=== PATIENT | male | born 1990 | race African-American/Black ===

== ENCOUNTER 2022-06-02 14:30 | Observation (INO) | payer MEDICARE, MEDICAID, SELFPAY ==
[2022-06-02] VITALS (9 sets, daily range): BP systolic 95–120; BP diastolic 58–80; PULSE 58–92; RESP 11–18; TEMP 36.3–36.9; O2SAT 96–100
--- NOTE | ~2022-06-02 | XR_ITS ---
EXAMINATION: XR chest 1V portable DATE: 06/02/2022 17:46 INDICATION: Transient alteration of awareness TECHNIQUE: frontal view of the chest was obtained. COMPARISON: None FINDINGS: The lungs are clear with no focal airspace opacities, pulmonary edema, pleural effusion or pneumothor ax. The cardiomediastinal silhouette is normal. Visualized bones and soft tissues are unremarkable. IMPRESSION: 1. Normal chest radiograph. Reviewed, dictated and finalized at location A. IMPRESSION: 1. Normal chest radiograph.
--- NOTE | ~2022-06-02 | CT_ITS ---
EXAMINATION: CT brain wo con DATE: 06/02/2022 17:34 INDICATION: Altered mental status TECHNIQUE: Computed tomography (CT) of the head was performed without intravenous contrast. Sagittal and coronal reconstructions were performed. The mA was adjusted according to patient size. Iterative reconstruction technique was employed. The dose-length product was 605.33 mGy-cm. COMPARISON: None FINDINGS: No acute intracranial hemorrhage, acute infarction or abnormal extra axial fluid collection. Ventricl es are normal and symmetric. No mass/mass effect. Partially visualized lobular mucous retention cyst in the right maxillary sinus. The orbits and mastoid air cells are normal. IMPRESSION: 1. Normal brain. Reviewed, dictated and finalized at location A. IMPRESSION: 1. Normal brain.
--- NOTE | 2022-06-02 14:31 | ECG_ITS ---
Measurements Intervals [place] Rate: 84 P: 63 IA: 146 QRS: 35 QRSD: 71 T: 48 QT: 330 QTc: 391 Interpretive Statements SINUS RHYTHM WITH MARKED SINUS ARRHYTHMIA ST ELEVATION IN DIFFUSE LEADS- PROBABLY EARLY REPOLARIZATION BORDERLINE ECG NO PREVIOUS ECG AVAILABLE FOR COMPARISON Electronically Signed On 06-03-2022 7:01:23 CDT by Elliott Bruno D.O.
[2022-06-02 14:42] LABS: Glucose Point of Care 201 mg/dl (65-105)
[2022-06-02 14:56] LABS: Basophils Percent Auto 0.4 % (0.2-1.2); Eosinophils Percent Auto 0.2 % (0-4.4); Hematocrit 36.8 % (42.0-52.0); Hemoglobin 12.3 g/dL (14.0-18.0); Immature Granulocyte Absolute 0.03 K/mm3 (0.00-0.031); Immature Granulocyte Percent A 0.3 % (0-0.5); Lymphocytes Absolute Auto 1.02 K/mm3 (0.9-3.2); Lymphocytes Percent Auto 11.4 % (18.3-44.2); Mean Corpuscular HGB Conc 33.4 g/dl (32-36); Mean Corpuscular Hemoglobin 30.6 pg (26-34); Mean Corpuscular Volume 91.5 fl (80-100); Mean Platelet Volume 9.2 fl (7.4-10.4); Monocytes Absolute Auto 0.3 K/mm3 (0.1-0.6); Neutrophils Absolute Auto 7.5 K/mm3 (1.3-6.7); Neutrophils Percent Auto 84.7 % (45.5-73.1); Platelet Count Result 244 k/mm3 (150-375); Red Blood Count 4.02 M/mm3 (4.6-6.20); White Blood Count 8.9 K/mm3 (4.5-10.0)
[2022-06-02] MEDS: SODIUM CHLORIDE 0.9% IV 1,000 ML 999 ML IV CONT (14:57)
[2022-06-02 15:04] LABS: Base Excess ABG 1.8 mEq/l (+/-2.0); Carboxyhemoglobin 0.3 % THb (0-2.0); Fractional Inspired Oxygen 21 %; HCO3 ABG 23.6 mEq/l (22.0-26.0); Methemoglobin ABG 0.3 %THb (0-1.5); Oxygen Content ABG 18.1 %vol (16.0-22.0); Oxygen Saturation ABG 98.6 % (95.0-100.0); Oxyhemoglobin 97.2 % THb (90.0-100.0); PCO2 ABG 29.2 mmHg (35.0-45.0); PO2 ABG 115.1 mmHg (80.0-100.0); PO2 FiO2 Ratio Arterial Blood 5.48 %; Reduced Hemoglobin 2.2 %THb (0-5.0); Total Hemoglobin 13.1 g/dL (12.0-18.0)
[2022-06-02 15:05] LABS: Device ROOM AIR; Modified Allen's Test Pass; Site Drawn RIGHT RADIAL
[2022-06-02 15:10] LABS: pH ABG 7.526 (7.350-7.450)
[2022-06-02 15:10] LABS: Alanine Aminotransferase 12 U/L (6-50); Albumin Level 4.4 g/dL (3.5-5.1); Alkaline Phosphatase 43 U/L (38-126); Anion Gap 15 mmol/L (8-16); Aspartate Amino Transferase 20 U/L (17-59); Bilirubin,Total 0.9 mg/dL (0.2-1.3); Blood Urea Nitrogen 25 mg/dL (9-20); Calcium 9.2 mg/dL (8.4-10.2); Carbon Dioxide 22 mmol/L (22-30); Chloride 102 mmol/L (98-107); Estimated Glomerular Filt Rate > 60; Glucose 210 mg/dL (65-110); INR 1.1; Potassium 4.1 mmol/L (3.4-5.0); Sodium 139 mmol/L (137-145)
[2022-06-02 15:11] LABS: Partial Thromboplastin Time 28.7 SECONDS (22.3-36.8)
[2022-06-02 15:15] LABS: Ethanol < 10 mg/dL (<10)
[2022-06-02 15:23] LABS: Creatine Kinase 130 U/L (55-170)
[2022-06-02 16:44] LABS: Appearance Urine Clear (Clear); Bilirubin Urine 1+ (Negative); Blood Urine Trace-intact (Negative); Color Urine Yellow (Yellow); Glucose Urine UA Trace mg/dL (Negative); Ketones Urine 4+ mg/dL (Negative); Leukocyte Esterase Ur Negative LEU/UL (Negative); Nitrate Urine Negative (Negative); Protein Urine 1+ mg/dL (Negative)
[2022-06-02 16:49] LABS: Bacteria Urine Trace /hpf; Mucus Urine Few /lpf
[2022-06-02 16:57] LABS: Amphetamine Screen Urine Negative (Negative); Barbiturate Screen Urine Negative (Negative); Benzodiazepines Screen Urine Negative (Negative); Cannabinoid Screen Urine Negative (Negative); Cocaine Screen Urine Negative (Negative); Methadone Screen Urine Negative (Negative); Opiate Screen Urine Negative (Negative); Phencyclidine Screen Urine Negative (Negative)
[2022-06-02 17:05] LABS: Add Urine Microscopic? YES
--- NOTE | 2022-06-02 17:15 | PM.IMHP ---
H&P: HPI History of Present Illness Date/Time: 06/02/22 17:15 Chief Complaint: Altered mental status. Narrative: The patient is an a male of unknown age who presented to the emergency department via EMS for evaluation of altered mental status. He is alert but unable to provide any meaningful history and as such all of the following is obtained via a review of his electronic medical records. According to EMS report, they were dispatched to a local roadway for reports of a disoriented male who was walking in and out of a corn field. His vital signs were stable on their arrival. Glucose was 72 and he was given dextrose. He was also given Narcan without response. On arrival to the emergency department he did provide a date of however it is unclear whether or not this is accurate. He looks thin and a bit dehydrated but otherwise he is nontoxic in appearance. He tells me he cannot remember his name. In fact he says he does not know where he is, who he is, and why he is here. I reminded him that he was found walking around a corn field in [place] and he said he was trying to get back to [place]. He did specifically deny headache, chest pain, and shortness of breath. He indicated that he was hungry and thirsty. He could provide no further information. Review of Systems Review of Systems: Unable to obtain accurately given altered mental status. [facility] Past Medical History Medical History Medical history unknown Surgical History Surgical History Surgical history unknown Family History Family History (Updated 06/02/22 @ 17:40 by Rosi Underwood PA-C) Other Family history unknown Social History Social History (Updated 06/02/22 @ 20:28 by Rosi Underwood PA-C) Social History: Patient unable to provide any history whatsoever. Smoking status: Unknown if ever smoked Alcohol intake: unknown Substance use: unknown Meds Home Medications and Allergies Home Medications Medication Instructions Recorded Confirmed Type No Home Medications 06/02/22 06/02/22 History Vital Signs Vital Signs - 24 hr 06/02/22 14:25 06/02/22 14:41 09/27/22 15:01 Pulse Rate 92 78 Respiratory Rate 16 16 15 Blood Pressure 115/69 95/58 L Pulse Oximetry 96 96 Oxygen Delivery Room Air 06/02/22 15:31 06/02/22 16:01 Pulse Rate 72 65 Respiratory Rate 13 14 Blood Pressure 113/63 109/68 Pulse Oximetry Oxygen Delivery Exam Narrative: General: Thin, nontoxic-appearing male supine in bed. Weight: 63.6 kilograms for HEENT: Normocephalic, atraumatic. PERRL, EOMI. Sclera anicteric. Dry mucous membranes. Oropharynx not visualized. Neck: Supple. No obvious thyromegaly or carotid bruits though exam limited due to patient cooperation. No nuchal rigidity. Respiratory: Respirations are nonlabored. Lung sounds are diminished due to poor effort but are otherwise clear. Cardiovascular: Regular rate and rhythm with S1-S2. No murmur, rub, or gallop. Gastrointestinal: Abdomen is soft, nontender, and nondistended with positive bowel sounds. Skin: Warm and dry. Extremities: No cyanosis, clubbing, or edema. Radial and pedal pulses intact. Neurological: Alert But not oriented. initially he provided a date of though this has yet to be confirmed. He cannot tell me his name, age, current year, place. Cranial nerves 2-12 are grossly intact. Speech is minimal and pressured, at times he stutters huh, huh, I, I, don't know. Psychiatric: Disoriented but cooperative. H&P: Results Labs Labs: Short CBC 06/02/22 Range/Units 14:45 WBC 8.9 (4.5-10.0) K/mm3 Hgb 12.3 L (14.0-18.0) g/dL Hct 36.8 L (42.0-52.0) % Plt Count 244 (150-375) k/mm3 [facility] 06/02/22 14:45 Sodium 139 Potassium 4.1 Chloride 102 Carbon Dioxide 22 BUN 25 H Creatinine 1.20 Glucose 210 H Calcium 9.
--- NOTE | 2022-06-02 17:34 | ED.GENADULT ---
HPI - General Adult General Chief complaint: Altered Mental Status Stated complaint: altered mental status Time Seen by Provider: 06/02/22 14:38 History of Present Illness HPI narrative: Patient is a 37-year-old male who presents ER with altered mental status. EMS called to roadway for an individual wandering through a cornfield. Patient is awake alert and can follow commands however he is not oriented. He keeps saying I already told you, when asked questions. No evidence of trauma. Patient's Accu-Chek was 72 so he received D10. No improvement. Additionally received some Narcan by EMS which did not change his mental status. Review of Systems Review of Systems: ROS unobtainable: Yes unobtainable due to mental status PMFSH Past Medical History Medical History Medical history unknown Surgical History Surgical History Surgical history unknown Family History Family History (Updated 06/02/22 @ 17:40 by Rosi Underwood PA-C) Other Family history unknown Social History Social History (Updated 06/02/22 @ 17:40 by Rosi Underwood PA-C) Social History: Patient unable to provide any history whatsoever. Exam Narrative: GENERAL: Well-appearing, thin, and in no acute distress. HEAD: Normocephalic, atraumatic. EYES: PERRL and EOMI. ENT: Mucous membranes moist. NECK: Supple. CHEST: Clear to auscultation. No respiratory distress. HEART: Regular rate and rhythm. Normal peripheral pulses. ABDOMEN: Soft, nontender, nondistended. EXTREMITIES: Normal range of motion. No edema. SKIN: Warm, dry, no rash. NEURO: Awake and alert but not oriented. No facial droop. Moves extremities without issue. Course Course Emergency Course: Admitted to the hospital service for altered mental status. Vital Signs Vital signs: Vital Signs Pulse Rate 92 06/02/22 14:25 Respiratory Rate 16 06/02/22 14:25 Blood Pressure 115/69 06/02/22 14:25 Pulse Oximetry 96 06/02/22 14:25 Oxygen Delivery Room Air 06/02/22 14:25 Temperature 98.4 F 06/02/22 17:52 Pulse Rate 67 06/02/22 17:52 Respiratory Rate 11 L 06/02/22 17:52 Blood Pressure 111/69 06/02/22 17:52 Pulse Oximetry 100 06/02/22 17:52 Oxygen Delivery Room Air 06/02/22 14:25 Medical Decision Making Vital Signs Vital Signs: Vital Signs Pulse Rate 92 06/02/22 14:25 Respiratory Rate 16 06/02/22 14:25 Blood Pressure 115/69 06/02/22 14:25 Pulse Oximetry 96 06/02/22 14:25 Oxygen Delivery Room Air 06/02/22 14:25 Temperature 98.4 F 06/02/22 17:52 Pulse Rate 67 06/02/22 17:52 Respiratory Rate 11 L 06/02/22 17:52 Blood Pressure 111/69 06/02/22 17:52 Pulse Oximetry 100 06/02/22 17:52 Oxygen Delivery Room Air 06/02/22 14:25 Lab Data Result diagrams: 06/02/22 14:45 06/02/22 14:45 Labs: Lab Results 06/02/22 06/02/22 06/02/22 Range/Units 14:33 14:44 14:45 WBC 8.9 (4.5-10.0) K/mm3 RBC 4.02 L (4.6-6.20) M/mm3 Hgb 12.3 L (14.0-18.0) g/dL Hct 36.8 L (42.0-52.0) % MCV 91.5 (80-100) fl MCH 30.6 (26-34) pg MCHC 33.4 (32-36) g/dl RDW 11.0 L (11.5-14.5) % Plt Count 244 (150-375) k/mm3 MPV 9.2 (7.4-10.4) fl Immature Gran % (Auto) 0.3 (0-0.5) % Neut % (Auto) 84.7 H (45.5-73.1) % Lymph % (Auto) 11.4 L (18.3-44.2) % [place] % (Auto) 3.0 (2.6-8.5) % Eos % (Auto) 0.2 (0-4.4) % Baso % (Auto) 0.4 (0.2-1.2) % Lymph # (Auto) 1.02 (0.9-3.2) K/mm3 [place] # (Auto) 0.3 (0.1-0.6) K/mm3 Eos # (Auto) 0.0 (0-0.3) K/mm3 Baso # (Auto) 0.0 (0.0-0.1) K/mm3 Abs Immat Gran (auto) 0.03 (0.00-0.031) K/mm3 Absolute Neuts (auto) 7.5 H (1.3-6.7) K/mm3 Absolute Nucleated RBC 0.0 (0.0-0.012) K/mm3 Nucleated RBC % 0.0 (0.0-0.2) % PT (11.1-14.7) Seconds INR AP
[2022-06-02] MEDS: SODIUM CHLORIDE 0.9% IV 1,000 ML 150 ML IV CONT (17:49)
[2022-06-03] VITALS (9 sets, daily range): BP systolic 109–129; BP diastolic 62–71; PULSE 51–81; RESP 18; TEMP 36.5–36.6; O2SAT 98–99
--- NOTE | 2022-06-03 02:37 | PC.NURSE ---
Pt family called and stated that they thought we had their nephew here. Pt description was given to RN. Which matched. Family stated they would be coming up to see pt and identify him. His mother and aunt arrived and stated that it was him and provided medical and identity information. Pt called her mother and stated that Blake was his name.
--- NOTE | 2022-06-03 02:43 | PC.NURSE ---
His mother went home and will return in the morning to speak with . She is concerned that pt may need medication adjusted.
--- NOTE | 2022-06-03 03:26 | ADMGEN ---
This patient, Grant Benítez, was admitted to Medical Room 243-01. Patient/family oriented to hospital policies and general routines including ID bracelet, bed and alarms, visiting hours, pain management, procedures, bathroom and other care routines, personal items, smoking policy, room service/diet, and visiting hours. Information on how to activate the Rapid Response Team has been discussed. Patient/Family are encouraged to report perceived risks to care and to ask questions if they do not understand what they are told or what they should do.
[2022-06-03 04:42] LABS: Hemoglobin 11.3 g/dL (14.0-18.0); Mean Corpuscular HGB Conc 32.3 g/dl (32-36); Mean Corpuscular Hemoglobin 30.5 pg (26-34); Mean Corpuscular Volume 94.3 fl (80-100); Mean Platelet Volume 8.9 fl (7.4-10.4); Platelet Count Result 197 k/mm3 (150-375); Red Blood Count 3.71 M/mm3 (4.6-6.20); Red Cell Distribution Width 11.2 % (11.5-14.5); White Blood Count 5.8 K/mm3 (4.5-10.0)
[2022-06-03 05:01] LABS: Anion Gap 5 mmol/L (8-16); Blood Urea Nitrogen 22 mg/dL (9-20); Calcium 8.6 mg/dL (8.4-10.2); Carbon Dioxide 27 mmol/L (22-30); Chloride 106 mmol/L (98-107); Estimated Glomerular Filt Rate > 60; Glucose 90 mg/dL (65-110); Magnesium 2.2 mg/dL (1.6-2.3); Potassium 3.8 mmol/L (3.4-5.0); Sodium 138 mmol/L (137-145)
[2022-06-03 05:45] LABS: Thyroid Stimulating Hormone Reflex 0.539 uIU/mL (0.465-4.68)
[2022-06-03 06:02] LABS: Folic Acid 14.1 ng/mL (2.76->20)
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
[2022-06-03] MEDS: Please add drug allergy info to patient profile. 1 EACH XX (12:26)
--- NOTE | 2022-06-03 14:49 | PC.NURSE ---
On 06/03/22, the student, [Dot Ashley], provided care and completed [employer] documentation on this patient. I have reviewed the student's documentation and agree with the findings.
[2022-06-03] MEDS: OLANZapine 5 MG TABLET 10 MG PO (20:49)
[2022-06-04] VITALS: PULSE 55
[2022-06-04 03:43] VITALS: BP 108/58; PULSE 63; RESP 16; TEMP 36.6; O2SAT 100
[2022-06-04 04:00] VITALS: PULSE 58
[2022-06-04] MEDS: SODIUM CHLORIDE 0.9% IV 1,000 ML 999 ML IV CONT (05:00)
--- NOTE | 2022-06-04 06:53 | PC.NURSE ---
Dr Baltazar notified pt has not urinated in >12hrs and has had poor PO fluid intake. Bladder scan at 0200 showed 238ml max. Order received for 1L NS bolus.
[2022-06-04 08:00] VITALS: PULSE 55
[2022-06-04 12:00] VITALS: PULSE 66
--- NOTE | 2022-06-04 13:40 | PM.DS ---
DS: Admitting Diagnosis Discharge Date 06/04/2022 Admitting Diagnosis altered mental status DS: Discharge Diagnosis Discharge Diagnosis (1) Altered mental status: Code(s): R41.82 - Altered mental status, unspecified Status: Acute Assessment and Plan: The patient presented to the emergency department via EMS after he was found wandering in and out of a corn field near a roadside. Urine toxicology and alcohol screen were within normal limits CT of the brain was normal with no evidence of trauma, hemorrhage, infarct No findings to suggest underlying infection Likely due to history of schizophrenia. See plan below (2) Schizophrenia: Code(s): F20.9 - Schizophrenia, unspecified Status: Acute Assessment and Plan: Patient with history of schizophrenia, onset age 14 [address] Rob Gerber in [place]. Maintained on zyprexa 10 mg qHS. Patients mother reports last appointment was 1 week ago, no changes made to his medication regimen at that time. She admits that she has not witnessed the patient taking his Zyprexa for several days and in fact was not able to find his pill bottle. Spoke with Dr. Gerber's office via phone. Recommended continuing current dose. Instructed that patients mother needs to keep the medication in her position and administer to patient each night to ensure appropriate use. Patient does not have insight into illness and cannot be responsible for taking medication independently. Follow up with Dr. Gerber in 2 weeks. (3) Dehydration: Code(s): E86.0 - Dehydration Status: Acute Assessment and Plan: Pt appeared dry on admission and was rehydrated with IV fluids. Volume status was improved and pt tolerating PO intake. DS: Summary Hospital Course Hospital Course: date of admission: 06/02/2022 date of discharge: 06/04/2022 Grant Benítez is a 31 year old male with a history of autism disorder and schizophrenia? who presented to the emergency department on 06/02/2022 via EMS after he was found wandering through a corn field in [place] and exhibiting confusion. Upon EMS arrival, he was given Narcan with no change in mental status. additionally, fingerstick glucose was 72 and he received D10 with no change in mental status. Patient was alert and able to follow commands but not able to provide his name, date of or any other additional identifying information. Eventually, the patient was able to be identified and history was obtained that patient has schizophrenia. Please see H&P for full details. Appears schizophrenia has been untreated and patient has not been taking his Zyprexa appropriately. Please see above for further information. His Zyprexa was restarted. Case was reviewed with his psychiatrist whom he will follow-up within 1-2 weeks. The patient's mother will be responsible for administering his medication to him each night and she will keep the medication and her of possession. Patient is not to self administer medication. per the patient's mother, he was back to his usual state of health And because of this was discharged in hemodynamically stable condition on 06/04/2022 Status at Discharge Functional status at discharge: independent ambulation Overall status at discharge: patient is back to baseline Time Spent with Patient Time attestation: Total time spent providing and/or coordinating discharge services: 40 minutes Time spent: Greater than 30 minutes Exam Narrative: General: thin well-appearing 31-year-old male, supine in bed, comfortable, NARD Neuro: awake, alert, answers questions appropriately, speech clear, no focal neurologic deficits noted HEENMT: normocephalic, atraumatic, EOMI, sclerae anicteric Respiratory: clear to auscultation anteriorly, nonlabored breathing Cardio: regular rate, regular rhythm with S1-S2 Abdomen: nondistended, normoactive bowel sounds, soft, nontender to
[2022-06-04 13:50] VITALS: BP 127/66; PULSE 61; RESP 14; TEMP 36.6; O2SAT 100
== END 2022-06-04 17:03 | disposition home or self-care (01) ==
LOC: ANHED 17:37 → ANH2MED 17:41
PROVIDERS: Physician Assistant; Admitting Provider Internal Medicine; Emergency Provider Emergency Medicine; Visit Provider Family Medicine
DX: R41.82 Altered mental status, unspecified (principal); F20.9 Schizophrenia, unspecified; E86.0 Dehydration; F84.0 Autistic disorder; I49.8 Other specified cardiac arrhythmias; R82.4 Acetonuria; Z79.899 Other long term (current) drug therapy
CPT/HCPCS: 36415; 36600; 51701; 70450; 71045; 80048; 80053; 80307; 81001; 82375; 82550; 82607; 82746; 82805; 82948; 83050; 83735; 84443; 85025; 85027; 85610; 85730; 93005; 96360; 96361; 99285; A9270; G0378; J7030